=== PATIENT | female | born 1995 | race Caucasian/White ===

== ENCOUNTER 2017-04-30 23:00 | Emergency (ER) | payer MEDICAID ==
[~2017-04-30] VITALS: Ht 180.3 cm; Wt 95.6 kg
[~2017-04-30 23:00] MED LIST: IBUP800T PO; NITR100C56 PO; OXYC-302 PO; RANI300T3 PO
[2017-04-30 23:12] VITALS: BP 117/76
== END 2017-04-30 23:45 | disposition home or self-care (01) ==
LOC: ED 23:39
DX: S90.561A Insect bite (nonvenomous), right ankle, initial encounter (principal); S40.862A Insect bite (nonvenomous) of left upper arm, initial encounter; W57.XXXA Bitten or stung by nonvenomous insect and other nonvenomous arthropods, initial encounter; Y93.89 Activity, other specified; Y92.009 Unspecified place in unspecified non-institutional (private) residence as the place of occurrence of the external cause; Y99.9 Unspecified external cause status
CPT/HCPCS: 99282

== ENCOUNTER 2017-06-18 20:28 | Outpatient (CLI) | payer MEDICAID ==
[~2017-06-18] VITALS: Ht 180.3 cm; Wt 94.3 kg
[2017-06-18 21:33] VITALS: BP 123/57
== END 2017-06-18 22:42 | disposition home or self-care (01) ==
LOC: LDOP 20:28
PROVIDERS: ATTEND Obstetrics & Gynecology
DX: O26.893 Other specified pregnancy related conditions, third trimester (principal); R10.9 Unspecified abdominal pain; Z3A.34 34 weeks gestation of pregnancy
CPT/HCPCS: 36415; 59025; 81001; 82731; 87086; 99211; G0463

== ENCOUNTER 2017-07-02 17:22 | Outpatient (CLI) | payer MEDICAID ==
[~2017-07-02] VITALS: Ht 180.3 cm; Wt 95.9 kg
[2017-07-02 18:03] VITALS: BP 111/70
[2017-07-02 19:37] LABS: DAU SCREEN DISCLAIMER
[2017-07-02 20:01] LABS: AMNI OBC PASS; AMNISURE NEGATIVE (NEGATIVE)
[2017-07-02] MEDS ORDERED: DIPH25CA61 PO (20:03)
[2017-07-02] MEDS ORDERED: RANI25VI PO (20:05)
[2017-07-02] MEDS ORDERED: BETAMETHASONE 6 MG/ML, 5ML IM ONE ×2 (20:30→20:31)
== END 2017-07-02 21:00 | disposition home or self-care (01) ==
LOC: LDOP 17:22
PROVIDERS: ATTEND Obstetrics & Gynecology
DX: O62.9 Abnormality of forces of labor, unspecified (principal); O24.419 Gestational diabetes mellitus in pregnancy, unspecified control; O99.343 Other mental disorders complicating pregnancy, third trimester; O99.513 Diseases of the respiratory system complicating pregnancy, third trimester; F32.9 Major depressive disorder, single episode, unspecified; J45.909 Unspecified asthma, uncomplicated; Z3A.35 35 weeks gestation of pregnancy
CPT/HCPCS: 59025; 80307; 81001; 82962; 84112; 87081; 87086; 87147; 99211; J0702; G0463

== ENCOUNTER 2017-07-03 21:23 | Outpatient (CLI) | payer MEDICAID ==
[~2017-07-03] VITALS: Ht 177.8 cm; Wt 95.9 kg
[~2017-07-03 21:23] MED LIST changes: +DIPH25CA61 PO; +RANI25VI PO
[2017-07-03] MEDS ORDERED: BETAMETHASONE 6 MG/ML, 5ML IM ONE ×2 (21:30→21:34)
[2017-07-03] MEDS ORDERED: PLEASE ENTER HEIGHT AND WEIGHT MC SCH (22:00)
== END 2017-07-03 21:44 | disposition home or self-care (01) ==
LOC: LDOP 21:23
PROVIDERS: ATTEND Obstetrics & Gynecology
DX: O62.9 Abnormality of forces of labor, unspecified (principal); O24.419 Gestational diabetes mellitus in pregnancy, unspecified control; O99.513 Diseases of the respiratory system complicating pregnancy, third trimester; O99.343 Other mental disorders complicating pregnancy, third trimester; J45.909 Unspecified asthma, uncomplicated; F32.9 Major depressive disorder, single episode, unspecified; Z3A.35 35 weeks gestation of pregnancy
CPT/HCPCS: 96372; J0702

== ENCOUNTER 2017-07-18 19:09 | Outpatient (CLI) | payer MEDICAID ==
[~2017-07-18] VITALS: Ht 177.8 cm; Wt 92.7 kg
[2017-07-18 20:04] LABS: DAU SCREEN DISCLAIMER
== END 2017-07-18 21:00 | disposition home or self-care (01) ==
LOC: LDOP 19:09
PROVIDERS: ATTEND Obstetrics & Gynecology
DX: O26.893 Other specified pregnancy related conditions, third trimester (principal); O62.9 Abnormality of forces of labor, unspecified; R10.9 Unspecified abdominal pain; Z3A.37 37 weeks gestation of pregnancy
CPT/HCPCS: 59025; 80307; 81001; 87086; 99211; G0463

== ENCOUNTER 2017-07-23 21:14 | Outpatient (CLI) | payer MEDICAID ==
[~2017-07-23] VITALS: Ht 180.3 cm; Wt 96.8 kg
[~2017-07-23 21:14] MED LIST changes: +IBUP-1223 PO; -IBUP800T PO
[2017-07-23 21:32] VITALS: BP 117/60
[2017-07-23 21:34] LABS: DAU SCREEN DISCLAIMER
[2017-07-23] MEDS ORDERED: MEPERIDINE/PF 50 MG/ML IM PRN (23:00)
[2017-07-23] MEDS ORDERED: MEPERIDINE/PF 100 MG/ML ONE (23:02)
== END 2017-07-23 23:17 | disposition home or self-care (01) ==
LOC: LDOP 21:14
PROVIDERS: ATTEND Obstetrics & Gynecology
DX: O26.893 Other specified pregnancy related conditions, third trimester (principal); R10.9 Unspecified abdominal pain; Z3A.38 38 weeks gestation of pregnancy
CPT/HCPCS: 59025; 80307; 81001; 99211; J2175; G0463

== ENCOUNTER 2017-07-29 09:32 | Inpatient (IN) | payer MEDICAID ==
[~2017-07-29] VITALS: Ht 177.8 cm; Wt 98.1 kg
[2017-07-29] MEDS ORDERED: LIDOCAINE 1%, 20ML ONE (09:45)
[2017-07-29] MEDS ORDERED: OXYTOCIN 30U/ 0.9% NaCL 500ML 500 ML ONE ×2 (09:45→17:06)
[2017-07-29] MEDS ORDERED: NEWBORN KIT ONE (09:45)
[2017-07-29] MEDS ORDERED: MISOPROSTOL 200 MCG TABLET ONE (09:45)
[2017-07-29] MEDS: LACTATED RINGERS 1,000 ML IV SCH ×6 (09:55→18:42)
[2017-07-29] MEDS ORDERED: OXYTOCIN 30U/ 0.9% NaCL 500ML 500 ML IV ONE ×2 (10:02→10:21)
[2017-07-29 10:30] LABS: HEMATOCRIT 30.2 % (34.6-47.8); HEMOGLOBIN 10.1 g/dL (11.7-16.4); WHITE BLOOD COUNT 7.8 x10^3/uL (3.4-10)
[2017-07-29] MEDS ORDERED: FENTANYL PF 100 MCG/2ML IV PRN (10:30)
[2017-07-29] MEDS ORDERED: TERBUTALINE 1 MG/ML, 1ML IVPush PRN (10:30)
[2017-07-29] MEDS ORDERED: FENTANYL PF 100 MCG/2ML IVPush PRN (10:30)
[2017-07-29] MEDS ORDERED: ONDANSETRON 2MG/ML, 2ML IVPush PRN (10:30)
[2017-07-29] MEDS ORDERED: PENICILLIN GK 5,000,000 UNITS in DEXTROSE 5% 100 ML IVPB ONE (10:30)
[2017-07-29] MEDS ORDERED: FENTANYL/BUPIV./NS/PF 250 ML EPIDCONT SCH (10:42)
[2017-07-29] MEDS ORDERED: FENTANYL/BUPIV./NS/PF 250 ML EPIDCONT ONE (10:44)
[2017-07-29] MEDS ORDERED: BUPIVACAINE/PF 0.25% ONE (10:44)
[2017-07-29] MEDS ORDERED: NALOXONE 0.4 MG/ML, 1ML IVPush PRN (11:00)
[2017-07-29] MEDS ORDERED: LACTATED RINGERS 1,000 ML IVBOLUS PRN (11:00)
[2017-07-29] MEDS ORDERED: EPHEDRINE 50 MG/ML, 1ML IVPush PRN (11:00)
[2017-07-29 12:14] LABS: DAU SCREEN DISCLAIMER
[2017-07-29] MEDS ORDERED: OXYTOCIN 30U/ 0.9% NaCL 500ML 500 ML IV PRN (13:00)
[2017-07-29] MEDS: PENICILLIN GK 2,500,000 UNITS in DEXTROSE 5% 100 ML IVPB SCH ×3 (14:30→18:30)
[2017-07-29] MEDS ORDERED: MAGNESIUM HYDROXIDE 8%, 30ML UDC PO PRN (16:30)
[2017-07-29] MEDS ORDERED: GLYCERIN ADULT SUPP PR PRN (16:30)
[2017-07-29] MEDS ORDERED: MISOPROSTOL 200 MCG TABLET PR PRN (16:30)
[2017-07-29] MEDS ORDERED: ACETAMINOPHEN 325 MG TABLET PO PRN ×2 (16:30)
[2017-07-29] MEDS ORDERED: BISACODYL 10 MG SUPP PR PRN (16:30)
[2017-07-29] MEDS ORDERED: ONDANSETRON 2MG/ML, 2ML IV PRN (16:30)
[2017-07-29] MEDS ORDERED: METHYLERGONOVINE 0.2 MG/ML IM PRN (16:30)
[2017-07-29] MEDS ORDERED: OXYcodone/APAP 5/325MG TABLET PO PRN (16:30)
[2017-07-29] MEDS ORDERED: CALCIUM CARBONATE 500 MG TAB.CHEW PO PRN (16:30)
[2017-07-29] MEDS ORDERED: DOCUSATE 100 MG CAPSULE PO PRN (16:30)
[2017-07-29] MEDS: OXYTOCIN 30U/ 0.9% NaCL 500ML 500 ML IV SCH (17:09)
[2017-07-29 19:55] VITALS: BP 117/63
[2017-07-29 23:51] LABS: HEMATOCRIT 32.2 % (34.6-47.8); HEMOGLOBIN 10.9 g/dL (11.7-16.4); WHITE BLOOD COUNT 10.3 x10^3/uL (3.4-10)
[2017-07-29] MEDS: IBUPROFEN 600 MG TABLET PO PRN (23:51)
[2017-07-29 23:55] VITALS: BP 119/71
[2017-07-30] MEDS: OXYTOCIN 30U/ 0.9% NaCL 500ML 500 ML IV SCH ×3 (02:19→22:19)
[2017-07-30 03:40] VITALS: BP 109/62
[2017-07-30] MEDS: OXYcodone/APAP 5/325MG TABLET PO PRN ×4 (05:18→19:35)
[2017-07-30] MEDS: IBUPROFEN 600 MG TABLET PO PRN ×3 (05:18→19:35)
[2017-07-30 07:45] VITALS: BP 107/62
[2017-07-30] MEDS: FERROUS SULFATE 325 MG TABLET PO SCH (07:50)
[2017-07-30] MEDS: PRENATAL VIT/IRON/FA 1 EACH TABLET PO SCH (09:05)
[2017-07-30] MEDS ORDERED: IBUP-1223 PO (11:53)
[2017-07-30] MEDS ORDERED: OXYC-302 PO (11:53)
[2017-07-30 12:25] VITALS: BP 116/72
[2017-07-30 19:45] VITALS: BP 132/79
[2017-07-31 07:00] VITALS: BP 118/80
[2017-07-31] MEDS: OXYTOCIN 30U/ 0.9% NaCL 500ML 500 ML IV SCH (08:19)
[2017-07-31] MEDS: FERROUS SULFATE 325 MG TABLET PO SCH (11:41)
[2017-07-31] MEDS: PRENATAL VIT/IRON/FA 1 EACH TABLET PO SCH (11:41)
[2017-07-31] MEDS: IBUPROFEN 600 MG TABLET PO PRN (14:14)
== END 2017-07-31 17:33 | disposition home or self-care (01) | DRG 775 ==
LOC: LDOP 09:32 → LDIP 10:11 → 2NW 19:38
PROVIDERS: ADMIT Obstetrics & Gynecology; ATTEND Obstetrics & Gynecology
PROC: 0HQ9XZZ Repair Perineum Skin, External Approach (ICD-10-PCS; principal; 2017-07-29)
PROC: 10E0XZZ Delivery of Products of Conception, External Approach (ICD-10-PCS; 2017-07-29)
PROC: 3E0S3CZ (ICD-10-PCS; 2017-07-29)
PROC: 00HU33Z Insertion of Infusion Device into Spinal Canal, Percutaneous Approach (ICD-10-PCS; 2017-07-29)
DX: O24.429 Gestational diabetes mellitus in childbirth, unspecified control (principal); O99.324 Drug use complicating childbirth; O99.344 Other mental disorders complicating childbirth; F12.90 Cannabis use, unspecified, uncomplicated; O99.824 Streptococcus B carrier state complicating childbirth; F31.9 Bipolar disorder, unspecified; F41.9 Anxiety disorder, unspecified; O99.52 Diseases of the respiratory system complicating childbirth; O70.0 First degree perineal laceration during delivery; J45.909 Unspecified asthma, uncomplicated; Z37.0 Single live birth; Z3A.39 39 weeks gestation of pregnancy; Z87.891 Personal history of nicotine dependence
CPT/HCPCS: 36415; 80307; 81001; 82962; 85025; 86850; 86900; J2540; J2590; J3010; J7120

== ENCOUNTER 2018-06-06 09:10 | Emergency (ER) | payer MEDICAID, OTHER ==
[~2018-06-06] VITALS: Ht 177.8 cm; Wt 72.2 kg
[2018-06-06 09:56] LABS: BASOPHILS # (AUTO) 0.02 x10^3/uL (0-0.1); BASOPHILS % (AUTO) 0 % (0-1); EOSINOPHILS # (AUTO) 0.02 x10^3/uL (0-0.4); EOSINOPHILS % (AUTO) 0 % (1-7); LYMPHOCYTES # (AUTO) 3.23 x10^3/uL (1-3.4); LYMPHOCYTES % (AUTO) 41 % (22-44); MD NO; MEAN CORPUSCULAR HEMOGLOBIN 32.2 pg (27.0-34.8); MEAN CORPUSCULAR HGB CONC 34.3 g/dL (32.4-35.8); MEAN CORPUSCULAR VOLUME 93.8 fL (80-100); MEAN PLATELET VOLUME 6.6 fL (7.4-10.4); MONOCYTES # (AUTO) 0.46 x10^3/uL (0.2-0.8); MONOCYTES % (AUTO) 6 % (2-9); NEUTROPHILS % (AUTO) 53 % (42-75); PLATELET COUNT 327 x10^3/uL (130-400); RED BLOOD COUNT 3.87 x10^6/uL (3.82-5.3); RED CELL DISTRIBUTION WIDTH 15.5 % (9.6-15.2)
[2018-06-06 10:05] LABS: ALANINE AMINOTRANSFERASE 18 U/L (12-78); ALBUMIN 3.2 g/dL (3.4-5.0); ANION GAP 8 mmol/L (5-15); CALCIUM 8.5 mg/dL (8.5-10.1); CHLORIDE 109 mmol/L (98-107); CREATININE 0.66 mg/dL (0.55-1.02)
[2018-06-06 10:23] LABS: ALKALINE PHOSPHATASE 73 U/L (45-117); BILIRUBIN,TOTAL 0.3 mg/dL (0.2-1.0); TOTAL PROTEIN 6.9 g/dL (6.4-8.2)
[2018-06-06 10:25] LABS: MICROSCOPIC INDICATED
[2018-06-06 10:51] LABS: CULTURE INDICATED? YES
[2018-06-06 11:11] VITALS: BP 116/51
[2018-06-06] MEDS ORDERED: BUSP10TA PO (11:13)
[2018-06-06] MEDS ORDERED: RISP2TAB35 PO (11:13)
[2018-06-06] MEDS ORDERED: DEXT10TA7 PO (11:13)
[2018-06-06] MEDS ORDERED: BUPR300T49 PO (11:13)
[2018-06-06] MEDS ORDERED: TRAZ100T15 PO (11:13)
== END 2018-06-06 11:53 | disposition home or self-care (01) ==
LOC: ED 11:50
DX: O23.42 Unspecified infection of urinary tract in pregnancy, second trimester (principal); O23.12 Infections of bladder in pregnancy, second trimester; Z3A.16 16 weeks gestation of pregnancy
CPT/HCPCS: 36415; 76801; 80053; 81001; 84702; 85025; 87086; 99285

== ENCOUNTER 2018-08-06 18:39 | Outpatient (CLI) | payer MEDICAID ==
[~2018-08-06 18:39] MED LIST changes: +BUPR300T49 PO; +BUSP10TA PO; +DEXT10TA7 PO; +RISP2TAB35 PO; +TRAZ-137 PO
[2018-08-06 18:55] VITALS: BP 107/56
[2018-08-06 19:30] LABS: AMPHETAMINE SCREEN, URINE Positive (Negative); BARBITURATE SCREEN, URINE Negative (Negative); BENZODIAZEPINE SCREEN, URINE Negative (Negative); CANNABINOID SCREEN, URINE Negative (Negative); COCAINE SCREEN, URINE Negative (Negative); METHADONE SCREEN, URINE Negative (Negative); OPIATE SCREEN, URINE Negative (Negative)
== END 2018-08-06 19:20 | disposition home or self-care (01) ==
LOC: LDOP 18:39
PROVIDERS: ATTEND Obstetrics & Gynecology
DX: O26.899 Other specified pregnancy related conditions, unspecified trimester (principal); Z3A.00 Weeks of gestation of pregnancy not specified
CPT/HCPCS: 59025; 80307; 99211; G0463

== ENCOUNTER 2018-11-12 17:19 | Outpatient (CLI) | payer MEDICAID ==
[~2018-11-12] VITALS: Ht 177.8 cm; Wt 77.2 kg
[2018-11-12 19:25] LABS: MICROSCOPIC INDICATED
[2018-11-12 19:36] LABS: AMPHETAMINE SCREEN, URINE Negative (Negative); BARBITURATE SCREEN, URINE Negative (Negative); BENZODIAZEPINE SCREEN, URINE Negative (Negative); CANNABINOID SCREEN, URINE Negative (Negative); COCAINE SCREEN, URINE Negative (Negative); METHADONE SCREEN, URINE Negative (Negative); OPIATE SCREEN, URINE Negative (Negative)
== END 2018-11-12 19:30 | disposition home or self-care (01) ==
LOC: LDOP 17:19
PROVIDERS: ATTEND Obstetrics & Gynecology Gynecology
DX: O26.893 Other specified pregnancy related conditions, third trimester (principal); O24.419 Gestational diabetes mellitus in pregnancy, unspecified control; O99.333 Smoking (tobacco) complicating pregnancy, third trimester; F17.210 Nicotine dependence, cigarettes, uncomplicated; Z3A.35 35 weeks gestation of pregnancy
CPT/HCPCS: 59025; 76815; 80307; 81001; 87086; 99211; G0463

== ENCOUNTER 2019-06-07 13:35 | Emergency (ER) | payer MEDICAID ==
[~2019-06-07] VITALS: Ht 180.3 cm; Wt 74.2 kg
[~2019-06-07 13:35] MED LIST changes: +DOCU-131 PO; +FERR240T PO; +IBUP-1222 PO
[2019-06-07 13:57] VITALS: BP 131/89
[2019-06-07] MEDS ORDERED: ACETAMINOPHEN 500 MG TABLET PO ONE (14:30)
[2019-06-07] MEDS ORDERED: ACETAMINOPHEN 500 MG TABLET ONE (14:37)
--- NOTE | 2019-06-07 14:57 | NUR ---
MEDICATED FOR EAR AND JAW PAIN
== END 2019-06-07 15:07 | disposition home or self-care (01) ==
LOC: ED 14:45
DX: O26.891 Other specified pregnancy related conditions, first trimester (principal); H66.002 Acute suppurative otitis media without spontaneous rupture of ear drum, left ear; F17.200 Nicotine dependence, unspecified, uncomplicated; Z3A.08 8 weeks gestation of pregnancy
CPT/HCPCS: 99283